=== PATIENT | male | born 1935 | race Caucasian/White ===

== ENCOUNTER 2022-11-03 13:53 | Observation (INO) | payer MEDICARE, BC, SELFPAY ==
[2022-11-03 13:57] VITALS: BP 137/79; PULSE 88; RESP 16; TEMP 37.6; O2SAT 97
--- NOTE | 2022-11-03 14:30 | DI.CT_ITS ---
Exam(s) CT NECK W EXAM: CT NECK W CLINICAL HISTORY: trismus, facial swelling, throat pain. TECHNIQUE: Imaging Protocol: Axial computed tomography images with coronal and sagittal reformatted images were created and reviewed. CONTRAST MATERIAL: Intravenous: Omnipaque. Contrast volume:100mL COMPARISON: No exams were available for comparison FINDINGS: There is artifact particularly in the pharyngeal stage area secondary to the patient's dental amalgam . Orbits and orbital soft tissues: Within normal limits. Visualized paranasal sinuses: There is a mucous retention cyst or polyp in the left maxillary sinus. There is mucosal thickening in the maxillary sinuses. The remaining visualized paranasal sinuses a nd mastoid air cells are clear. No fluid levels are present. Pharynx: There is asymmetric enlargement of the right tonsillar tissue. No definite fluid collection is seen to suggest an abscess. There is stranding in the soft tissues in the right parapharyngeal s oft tissues. Larynx: Within normal limits. Retropharyngeal space: Within normal limits. Parotids/submandibular: There is heterogeneity and edema seen in the right submandibular gland. Mil d surrounding infiltration of the fat is seen. No ductal stones are identified. Thyroid gland: Within normal limits. Lymphadenopathy: There is scattered lymph nodes seen along the level one to level three all measurin g less than 8 mm in short axis diameter which are physiologic in nature. Trachea: Within normal limits. Lung apices: Within normal limits. Bones: Within normal limits for the patient's age. No findings to suggest a periapical abscess is se en. Carotids/Jugular: Within normal limits. Soft tissues: There is infiltration in the subcutaneous tissues along the right neck consistent wit h cellulitis. No abscess is seen. IMPRESSION: 1. Enlarged right tonsils. Heterogeneous edematous right submandibular gland. Infiltration in the s oft tissues in the right parapharyngeal space and right neck. The findings are suspicious for an inf ectious process such as tonsillitis. No definite abscess is seen at this time. There is however art ifact from the patient's dental amalgam obscuring portions of the pharyngeal spaces. No airway narro wing is seen at this time. 2. Findings were discussed with Abi Tenorio at 5:09 p.m. on 11/03/2022. RADIATION DOSE DELIVERED: 406.11mGy.cm Total DLP 406.11mGy.cm Total DLP DATA REPOSITORY: All CT scans at this facility are submitted to the National Radiology Data Registry (NRDR) Dose Index Registry (DIR) with the [employer] ([employer]). RADIATION OPTIMIZATION: All CT scans at this facility use at least one of these dose optimization te chniques: automated exposure control; mA and/or kV adjustment per patient size (includes targeted exa ms where dose is matched to clinical indication); or iterative reconstruction.
[2022-11-03] MEDS: Dexamethasone 10 MG/ML VIAL IVP ×2 (15:18→22:04)
[2022-11-03 15:21] LABS: Abs Immature Grans 0.03 10^3/uL (0.0-0.06); Absolute Basophil Count 0.02 10^3/uL (0.0-0.2); Absolute Eosinophil Count 0.02 10^3/uL (0.0-0.7); Absolute Lymphocyte Count 1.16 10^3/uL (1.2-3.4); Absolute Neutrophil Count 7.84 10^3/uL (1.2-6.7); Basophils % 0.2; Eosinophils % 0.2; HCT 47.4 % (40.0-50.0); HGB 15.8 g/dL (13.5-17.5); Immature Grans % 0.3; Lymphocytes % 11.5; MCH 30.1 pg (27.0-33.0); MCHC 33.3 % (32.0-36.0); MCV 90 fL (80-95); MPV 8.8 fL (8.0-11.0); Monocytes % 9.9; Neutrophils % 77.9; Platelet Count 284 10^3/uL (130-400); RBC 5.25 10^6/uL (4.36-5.78); RDW 13.9 % (11.8-14.1); RDW-SD 46.3 fL; WBC 10.07 10^3/uL (4.4-10.8)
[2022-11-03 15:33] LABS: ALT 19 U/L (16-63); AST 22 U/L (15-37); Albumin 3.9 g/dL (3.4-5.0); Alkaline Phosphatase 61 U/L (46-116); BUN 10 mg/dL (7-18); Bilirubin, Total 1.7 mg/dL (0.2-1.0); CREATININE 0.7 mg/dL (0.70-1.30); Calcium 9.3 mg/dL (8.5-10.1); Chloride 96 mmol/L (98-107); Estimated GFR 89.73 (mL/min/1.73m2); Glucose 105 mg/dL (74-106); Potassium 4.8 mmol/L (3.5-5.1); Sodium 131 mmol/L (136-145)
--- NOTE | 2022-11-03 15:56 | ED.GENADUL_ITS ---
Discharge Plan Disposition Patient Disposition: Admit to [facility] Discharge Details Admit Date/Time: 11/03/22 18:18 Admit Provider: Ghanshyam Plascencia Attending Provider: Ghanshyam Plascencia Primary Care Provider: Nay,Local ED Provider: Abi Tenorio Discharge Data Discharge Date/Time-TO BE ENTERED AT DEPARTURE: 11/03/22 19:56 Medical Decision Making <CARMITA Duncan - Last Filed: 11/04/22 21:46> This 87-year-old male presents with report of facial swelling followed by a sore throat over the course of the past several days. Evaluated at [facility] previously presents today secondary to sore throat and worsening symptoms. Pen sharifa CT soft tissue neck for further evaluation, on exam, uvula midline, swelling noted to palate, mild, maintaining secretions, normal phonation, swelling to the right side of face, will likely need antibiotics, did receive 10 mg of IV Decadron for trismus, signed out to Janae Tenorio pending CT Sodium 131, very mild hyponatremia, very mild hyperbilirubinemia, likely Leon Bears, no abdominal tenderness, no weakness, no dizziness, no nausea, vomiting vomiting, does not take any medications and is quite healthy at baseline <Abi Tenorio NP - Last Filed: 11/03/22 22:32> Medical Records Medical records reviewed: Yes I reviewed the patient's medical records. Medical records narrative: 1617: Care assumed from provider (CARMITA Duncan) Please see their initial HPI, PE, and documentation. Discussed patient details and case and pending workup and disposition. Patient is hemodynamically stable, and alert and oriented. At the time of signout awaiting CT neck result. And labs. CBC shows left shift up to look neutrophil 7.4, lymphocytes 1.16 monocytes 1, sodium 131 chloride 96 bilirubin is high at 1.7. No leukocytosis noted. On reexamination patient is unable to open his mouth fully, his uvula is swollen, he does have some swelling to his right posterior. 1740: Spoke with Dr. Cameron who was able to personally able to view the images, he recommends Unasyn, Zosyn for broad spectrum or Clindamycin, he recommends admission for IV antibiotics, observation, and steroids he also recommends repeating CT only if worsening. Then DC on Augmentin, tx to [facility] if worsening. Discussed recommendations with patient and family who verbalized understanding. They are in agreement with the plan for admission, he is a full code. 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 He has had tonsillectomy and adenoidectomy as a child. No allergies to medications. No medications on a regular basis. 1806: Hospitalist brandie. Discussed patient case and details with Dr. Willard who has accepted patient for admission. Will place holding orders. Unasyn ordered and Decadron twice daily 10 mg IV. Patient transferred up to floor in hemodynamically stable condition with ED staff. This text was generated using [email or web address] dictation system, please disregard any oddities of phrase or misspellings. Imaging Data Radiologic Study: Imaging: CT Scan Radiologist's impression: COMPARISON:? No exams were available for comparison? FINDINGS: There is artifact particularly in the pharyngeal stage area secondary to the patient's dental amalgam.? Orbits and orbital soft tissues:? Within normal limits. Visualized paranasal sinuses:? There is a mucous retention cyst or polyp in the left maxillary sinus.? There is mucosal thickening in the maxillary sinuses.? The remaining visualized paranasal sinuses and mastoid air cells are clear.? No fluid levels are present.? Pharynx: There is asymmetric enlargement of the right tonsillar tissue.? No definite fluid collection is seen to suggest an abscess.? There is stranding in the soft tissues in the right parapharyngeal soft tissues.? Larynx: Within normal limits. Retropharyngeal space: Within normal limits.? Parotids/submandibular:? There is heterogeneity and edema seen in the right submandibular gland.? Mild surrounding infiltration of the fat is seen.? No ductal stones are identified. Thyroid gland:? Within normal limits. Lymphadenopathy:? There is scattered lymph nodes seen along the level one to level three all measuring less than 8 mm in short axis diameter which are physiologic in nature. Trachea: Within normal limits. Lung apices:? Within normal limits. Bones: Within normal limits for the patient's age.? No findings to suggest a periapical abscess is seen. Carotids/Jugular:? Within normal limits. Soft tissues: ? There is infiltration in the subcutaneous tissues along the right neck consistent with cellulitis.? No abscess is seen. IMPRESSION: 1. Enlarged right tonsils.? Heterogeneous edematous right submandibular gland.? Infiltration in the soft tissues in the right parapharyngeal space and right neck.? The findings are suspicious for an infectious process such as tonsillitis.? No definite abscess is seen at this time.? There is however artifact from the patient's dental amalgam obscuring portions of the pharyngeal spaces.? No airway narrowing is seen at this time.? 2. Findings were discussed with Abi Tenorio at 5:09 p.m. on 11/03/2022. HPI <CARMITA Duncan - Last Filed: 11/04/22 21:46> General Date/Time Provider Initiated Documentation: 11/03/22 14:02 . HPI Narrative: This 87-year-old male presents with report of right facial swelling followed by sore throat over the course of the past several days. Denies fever or chills. Denies any chest pain or shortness of breath. Denies globus sensation in throat. Denies stiff neck. States he was evaluated [facility] not started on antibiotics. He thought he noted some swelling and tenderness over his parotid gland 2 days ago. Denies any trauma Related Data Home Medications Medication Instructions Recorded Confirmed amoxicillin 500 mg-potassium 1 tab PO BID #10 tabs 11/04/22 clavulanate 125 mg tablet (Augmentin) prednisone 10 mg tablet 20 mg PO DAILY #10 tabs 11/04/22 Previous Rx's Medication Instructions Recorded amoxicillin 500 mg-potassium 1 tab PO BID #10 tabs 11/04/22 clavulanate 125 mg tablet (Augmentin) prednisone 10 mg tablet 20 mg PO DAILY #10 tabs 11/04/22 Allergies Allergy/AdvReac Type Severity Reaction Status Date / Time No Known Allergies Allergy Unverified 11/03/22 14:03 General Stated Complaint: DentalOral LEV: 4 PFSH <CARMITA Duncan - Last Filed: 11/04/22 21:46> All Active Problems (Updated 11/03/22 @ 22:50 by Ghanshyam Plascencia) Peritonsillar cellulitis (Acute) Surgical History Hx of appendectomy Hx of tonsillectomy S/P tonsillectomy and adenoidectomy Social History Smoking/Tobacco Use Status: Never Smoking risk assessment performed?: Yes Alcohol Intake: current Alcohol Intake frequency: a few times a week Alcohol type: wine Drug use: Never Substance use type: does not use Housing: house Course <CARMITA Duncan - Last Filed: 11/04/22 21:46> Vital Signs Vital signs: Vital Signs Temperature 37.6 C H 11/03/22 13:57 Pulse 88 11/03/22 13:57 Respiratory Rate 16 11/03/22 13:57 Blood Pressure 137/79 11/03/22 13:57 Pulse Oximetry 97 11/03/22 13:57 Temperature 37.6 C H 11/03/22 13:57 Temperature Source Oral 11/03/22 13:57 Pulse 88 11/03/22 13:57 Respiratory Rate 16 11/03/22 13:57 Respiratory Effort Normal 11/03/22 14:02 Blood Pressure 137/79 11/03/22 13:57 Blood Pressure Position Sitting 11/03/22 13:57 Pulse Oximetry 97 11/03/22 13:57 Oxygen Delivery Method Room Air 11/03/22 13:57 Oxygen Flow Rate 0 11/03/22 13:57 Pain Level 5 11/03/22 15:41 Lab/Test Results Lab/Test Results: Laboratory Tests Range/Units 11/03/22 11/03/22 15:13 15:13 WBC (4.4-10.8) 10^3/uL 10.07 RBC (4.36-5.78) 10^6/uL 5.25 Hgb (13.5-17.5) g/dL 15.8 Hct (40.0-50.0) % 47.4 MCV (80-95) fL 90 MCH (27.0-33.0) pg 30.1 MCHC (32.0-36.0) % 33.3 RDW (11.8-14.1) % 13.9 Plt Count (130-400) 10^3/uL 284 MPV (8.0-11.0) fL 8.8 Immature Gran % 0.3 Neutrophils % 77.9 Lymphocytes % 11.5 Monocytes % 9.9 Eosinophils % 0.2 Basophils % 0.2 Nucleated RBC % (0.0-0.3) % 0.0 Absolute Neutrophils (1.2-6.7) 10^3/uL 7.84 H Absolute Lymphocytes (1.2-3.4) 10^3/uL 1.16 L Absolute Monocytes (0.1-0.8) 10^3/uL 1.00 H Absolute Eosinophils (0.0-0.7) 10^3/uL 0.02 Absolute Basophils (0.0-0.2) 10^3/uL 0.02 Sodium (136-145) mmol/L 131 L Potassium (3.5-5.1) mmol/L 4.8 Chloride (98-107) mmol/L 96 L Carbon Dioxide (21.0-32.0) mmol/L 26.0 Anion Gap (3-11) mmol/L 9.0 BUN (7-18) mg/dL 10 Creatinine (0.70-1.30) mg/dL 0.7 Est GFR (CKD-EPI 2020) (mL/min/1.73m2) 89.73 Glucose (74-106) mg/dL 105 Calcium (8.5-10.1) mg/dL 9.3 Total Bilirubin (0.2-1.0) mg/dL 1.7 H AST (15-37) U/L 22 ALT (16-63) U/L 19 Alkaline Phosphatase (46-116) U/L 61 Total Protein (6.4-8.2) g/dL 8.0 Albumin (3.4-5.0) g/dL 3.9 Sign Out <CARMITA Duncan - Last Filed: 11/04/22 21:46> Sign Out Data: Sign Out Comment: pending ct/.dispo Last updated by Sophie Diana PA at 11/03/22 16:00 PAWSS <CARMITA Duncan - Last Filed: 11/04/22 21:46> Have you Been Recently Intoxicated or Drunk Within the Last 30 days?: No Have you Ever Experienced Previous Episodes of Alcohol Withdrawal?: No Have you ever Experienced Withdrawal Seizures?: No Have you ever Experienced Delirium Tremens(DT)s?: No Have you ever undergone Alcohol Rehabilitation Treatment (i.e, inpt ot outpatient treatment programs)?: No Have you ever Experienced Blackouts?: No Have you ever Combined Alcohol with other Downers within the last 90 days?: No Have you ever Combined Alcohol with any other Substance of Abuse during the last 90 days?: No Result: 0 <Abi Tenorio NP - Last Filed: 11/03/22 22:32> Result: 0
[2022-11-03] MEDS: Normal Saline 500 ML IV (16:34)
[2022-11-03] MEDS: Omnipaque 350 MG/ML 100 ML BTL IJ (16:47)
[2022-11-03] MEDS: Normal Saline - Diluent 50 ML VIAL IJ (16:48)
[2022-11-03] MEDS: Normal Saline Flush 10 ML SYR IVP (16:49)
[2022-11-03] MEDS: CLINDAMYCIN 600 MG/50 ML BAG 100 MG IVPB ×2 (18:07→22:50)
[2022-11-03] MEDS: AMPICILLIN/SULBACTAM 3 GM in Normal Saline 100 ML IVPB (18:35)
[2022-11-03 20:01] VITALS: BP 138/80; PULSE 78; RESP 18; TEMP 36.6; O2SAT 96
[2022-11-03 20:05] VITALS: BP 128/77; PULSE 74; RESP 16; TEMP 36.8; O2SAT 99
--- NOTE | 2022-11-03 22:48 | W.PM.HP.N ---
Date of service: 11/03/22 Time of Service: 22:48 Assessment and Plan Assessment and plan (1) Peritonsillar cellulitis: Start date: 11/03/22 Status: Acute Assessment and plan: This is an 87-year-old gentleman with onset of right neck pain and swelling externally and having a fullness in his right neck over 48 hours. He has no fever or elevated WBC but CT scan does show significant cellulitis of the peritonsillar area though he is status post tonsillectomy bilaterally. He was started on Unasyn IV and Decadron with improvement after 1 dose of each. He will continue on IV antibiotic therapy and Decadron IV twice daily with converted to oral therapy if improving over the next 24 to 48 hours. He is on observation. If he worsens repeat CT scan and ENT consultation will be sought within 24 hours. He appears to be responding well. It is anticipated that he will be discharged home within 48 hours. He is a full code. History of Present Illness History of Present Illness Chief Complaint: Sore throat with trismus Narrative: This is an 87-year-old male patient who began to have a sore throat with difficulty opening his mouth 2 days prior to presentation. His trismus and sore throat worsened with swelling of his parotid gland area but no fever was noted. The day prior to admission the patient did go to the outpatient clinic and is right tonsillar area was erythematous with some swelling but all screening test were negative including rapid strep test along with viral screening including flu, COVID and RSV. He was found to be conservative and all the symptomatic treatment option rather than antibiotics but worsened and reported to the ED. CT scan did show some swelling and stranding in the tonsillar area though the patient did have a bilateral tonsillectomy with adenoidectomy. The diagnosis was peritonsillar cellulitis without abscess the patient was admitted on the Unasyn with Decadron and felt better by the time I saw him after 1 dose of each. He still has significant trismus and cannot open his mouth. Generally patient is healthy on no medical therapy and avoids medical care if possible. He is a full code. Review of Systems Narrative: 13 point review of systems otherwise unrevealing or stable. [facility] All Active Problems (Updated 11/03/22 @ 22:50 by Ghanshyam Plascencia) Peritonsillar cellulitis (Acute) Surgical History Hx of appendectomy Hx of tonsillectomy S/P tonsillectomy and adenoidectomy Social History Smoking/Tobacco Use Status: Never Smoking risk assessment performed?: Yes Alcohol Intake: current Alcohol Intake frequency: a few times a week Alcohol type: wine Drug use: Never Substance use type: does not use Housing: house Meds Allergies and Home Medications Allergies Allergy/AdvReac Type Severity Reaction Status Date / Time No Known Allergies Allergy Unverified 11/03/22 14:03 Home Medications Medication Instructions Recorded Confirmed Type Unknown [No Known Home Meds] 11/03/22 11/03/22 History Exam Narrative Exam Narrative: General: Patient appears appropriate for age, thinly built, alert and oriented x3 with some difficulty hearing. He is in no acute distress. HEENT: Normocephalic, eyes with pupils equal and react to light symmetrically, extraocular move intact and sclera anicteric. Oropharynx with erythema over the right pharynx but difficulty visualizing his pharynx with patient unable to open his mouth widely. There is some significant trismus persisting and some slight tenderness over his right jaw but no palpable swelling or fluctuance. Neck: Supple without JVD. No palpable lymphadenopathy over the neck. Back: Normal posture without CVA tenderness. Lungs: Clear to auscultation percussion with no focalizing rales or rhonchi. Normal vesicular breath sounds. Normal aeration. Heart: Regular rate and rhythm with no murmurs or gallops appreciated. Abdomen: Scaphoid contour, soft nontender to palpation with no palpable hepatosplenomegaly. Bowel sounds positive all quadrants. Genitalia/rectal: Exam deferred. Extremities: Without clubbing, cyanosis or pitting edema. Peripheral pulses intact. Skin: Actinic changes over sun exposed areas, rough texture, otherwise normal color, warm and dry. Neuro: Cranial nerves II through XII grossly intact, no focalizing motor deficits. No tremor. Psych: Normal affect and mood. No abnormal thought processes. Remote and recent memory grossly intact. Results Imaging Imaging Studies: EXAM:? CT NECK W CLINICAL HISTORY:? trismus, facial swelling, throat pain. ? TECHNIQUE:? Imaging Protocol: Axial computed tomography images with coronal and sagittal reformatted images were created and reviewed. CONTRAST MATERIAL:? Intravenous: Omnipaque.? Contrast volume:100mL COMPARISON:? No exams were available for comparison? FINDINGS: There is artifact particularly in the pharyngeal stage area secondary to the patient's dental amalgam.? Orbits and orbital soft tissues:? Within normal limits. Visualized paranasal sinuses:? There is a mucous retention cyst or polyp in the left maxillary sinus.? There is mucosal thickening in the maxillary sinuses.? The remaining visualized paranasal sinuses and mastoid air cells are clear.? No fluid levels are present.? Pharynx: There is asymmetric enlargement of the right tonsillar tissue.? No definite fluid collection is seen to suggest an abscess.? There is stranding in the soft tissues in the right parapharyngeal soft tissues.? Larynx: Within normal limits. Retropharyngeal space: Within normal limits.? Parotids/submandibular:? There is heterogeneity and edema seen in the right submandibular gland.? Mild surrounding infiltration of the fat is seen.? No ductal stones are identified. Thyroid gland:? Within normal limits. Lymphadenopathy:? There is scattered lymph nodes seen along the level one to level three all measuring less than 8 mm in short axis diameter which are physiologic in nature. Trachea: Within normal limits. Lung apices:? Within normal limits. Bones: Within normal limits for the patient's age.? No findings to suggest a periapical abscess is seen. Carotids/Jugular:? Within normal limits. Soft tissues: ? There is infiltration in the subcutaneous tissues along the right neck consistent with cellulitis.? No abscess is seen. IMPRESSION: 1. Enlarged right tonsils.? Heterogeneous edematous right submandibular gland.? Infiltration in the soft tissues in the right parapharyngeal space and right neck.? The findings are suspicious for an infectious process such as tonsillitis.? No definite abscess is seen at this time.? There is however artifact from the patient's dental amalgam obscuring portions of the pharyngeal spaces.? No airway narrowing is seen at this time.? Labs 11/03/22 15:13 11/03/22 15:13 Labs: Laboratory Results - last 24 hr 11/03/22 11/03/22 15:13 15:13 WBC 10.07 RBC 5.25 Hgb 15.8 Hct 47.4 MCV 90 MCH 30.1 MCHC 33.3 RDW 13.9 Plt Count 284 MPV 8.8 Immature Gran % 0.3 Neutrophils % 77.9 Lymphocytes % 11.5 Monocytes % 9.9 Eosinophils % 0.2 Basophils % 0.2 Nucleated RBC % 0.0 Absolute Neutrophils 7.84 H Absolute Lymphocytes 1.16 L Absolute Monocytes 1.00 H Absolute Eosinophils 0.02 Absolute Basophils 0.02 Sodium 131 L Potassium 4.8 Chloride 96 L Carbon Dioxide 26.0 Anion Gap 9.0 BUN 10 Creatinine 0.7 Est GFR (CKD-EPI 2020) 89.73 Glucose 105 Calcium 9.3 Total Bilirubin 1.7 H AST 22 ALT 19 Alkaline Phosphatase 61 Total Protein 8.0 Albumin 3.9 Last Vital Signs Temp 36.8 C 11/03/22 20:05 Pulse 74 11/03/22 20:05 Resp 16 11/03/22 20:05 BP 128/77 11/03/22 20:05 Pulse Ox 99 11/03/22 20:05 PAWSS Have you Been Recently Intoxicated or Drunk Within the Last 30 days?: No Have you Ever Experienced Previous Episodes of Alcohol Withdrawal?: No Have you ever Experienced Withdrawal Seizures?: No Have you ever Experienced Delirium Tremens(DT)s?: No Have you ever undergone Alcohol Rehabilitation Treatment (i.e, inpt ot outpatient treatment programs)?: No Have you ever Experienced Blackouts?: No Have you ever Combined Alcohol with other Downers within the last 90 days?: No Have you ever Combined Alcohol with any other Substance of Abuse during the last 90 days?: No Result: 0 Time Spent Time spent with Patient: 55-74 minutes Time was spent: preparing to see the patient(eg.review tests), obtaining and/or reviewing separately otained hiistory, ordering medications,tests, procedures, referring, communicating with other health pet caregiver, indepentently interpreting results and care coordination
[2022-11-03 23:38] VITALS: BP 130/81; PULSE 69; RESP 18; TEMP 36.6; O2SAT 97
[2022-11-04] MEDS: Heparin 5,000 UNITS/ML VIAL 5000 UNITS SC (01:48)
[2022-11-04] MEDS: AMPICILLIN/SULBACTAM 3 GM in Normal Saline 100 ML IVPB ×2 (01:49→10:49)
[2022-11-04 07:18] LABS: HCT 44.3 % (40.0-50.0); HGB 15.2 g/dL (13.5-17.5); MCH 30.5 pg (27.0-33.0); MCHC 34.3 % (32.0-36.0); MCV 89 fL (80-95); MPV 9.1 fL (8.0-11.0); Platelet Count 292 10^3/uL (130-400); RBC 4.98 10^6/uL (4.36-5.78); RDW 13.8 % (11.8-14.1); RDW-SD 45.2 fL; WBC 5.68 10^3/uL (4.4-10.8)
[2022-11-04 07:38] LABS: ALT 16 U/L (16-63); AST 9 U/L (15-37); Albumin 3.4 g/dL (3.4-5.0); Alkaline Phosphatase 54 U/L (46-116); Anion Gap 8.2 mmol/L (3-11); BUN 13 mg/dL (7-18); Bilirubin, Total 1.1 mg/dL (0.2-1.0); CO2 26.8 mmol/L (21.0-32.0); CREATININE 0.8 mg/dL (0.70-1.30); Calcium 9.2 mg/dL (8.5-10.1); Chloride 98 mmol/L (98-107); Estimated GFR 86.19 (mL/min/1.73m2); Glucose 136 mg/dL (74-106); Potassium 4.7 mmol/L (3.5-5.1); Sodium 133 mmol/L (136-145); Total Protein 7.2 g/dL (6.4-8.2)
[2022-11-04] MEDS: Normal Saline Flush 10 ML SYR IVP (08:21)
[2022-11-04] MEDS: Dexamethasone 10 MG/ML VIAL IVP (08:21)
[2022-11-04 08:39] VITALS: BP 148/75; PULSE 78; RESP 16; TEMP 36.5; O2SAT 98
[2022-11-04] MEDS: CLINDAMYCIN 600 MG/50 ML BAG 100 MG IVPB (08:45)
[2022-11-04 10:55] VITALS: BP 136/76; PULSE 63; RESP 16; TEMP 36.5; O2SAT 98
--- NOTE | 2022-11-04 11:53 | DSE_ITS ---
Date of service: 11/04/22 Time of Service: 11:53 DS: Diagnosis Discharge Diagnosis (1) Peritonsillar cellulitis: Status: Acute Asessment and Plan: Patient presented with severe pharyngitis to the point it was causing difficulty breathing. He received dexamethasone and Unasyn in the ED and began to feel somewhat better within an hour. A CT scan of the head neck did not show a retroperitoneal abscess. Within 24 hours he felt quite a bit better though still did have some residual trismus. He is discharged on 5 more days of Augmentin and prednisone 20 mg daily x5 more days. Discharge Plan Disposition Patient Disposition: Home Condition: Improving Discharge Details Reason For Visit: Right Retropharyngeal Cellulitis Admit Date/Time: 11/03/22 18:18 Admit Provider: Ghanshyam Plascencia Attending Provider: Ghanshyam Plascencia Primary Care Provider: Nay,[facility] Course Hospital Course: This is an 87-year-old gentleman with onset of right neck pain and swelling externally and having a fullness in his right neck over 48 hours.? He has no f ever or elevated WBC but CT scan does show significant cellulitis of the peritonsillar area though he is status post tonsillectomy bilaterally.? He was started on Unasyn IV and Decadron with improvement after 1 dose of each.? He continued on IV antibiotic therapy and Decadron IV twice daily. Converted to oral therapy at discharge.? He is on observation.? If he worsens repeat CT scan and ENT consultation will be sought within 24 hours.? He appears to be responding well.? The day of discharge he did still complain of some trismus. He points to the right side of the angle of the jaw when he forces his mouth open. He describes it as much better. He is back to eating solid food. He has had no fevers. He has no local primary care provider. He wishes to establish this on his own. His plan is to follow-up with urgent care or the emergency room if needed. He does not go back to [place] for another several weeks. Home Meds and New Rx's Prescriptions: New amoxicillin-pot clavulanate [Augmentin] 500-125 mg tablet 1 tab PO BID Qty: 10 0RF prednisone 10 mg tablet 20 mg PO DAILY Qty: 10 0RF Discharge Instructions Instructions: Pharyngitis (GEN) Activity:: Activity as Tolerated Equipment/Supplies:: No Equipment Needed Diet:: As Tolerated Discharge Orders Discharge Orders: Discharge Order (Routine); Ordered 11/04/22 Ordered By: Donald Julio DS: Summary Time Spent with Patient providing and/or coordinating discharge services: Greater than 30 minutes Status at Discharge Functional status at discharge: independent ambulation Overall status at discharge: patient is back to baseline Mental Status: mental status grossly normal Speech and Movement: speech and movement normal Mood: congruent mood Affect: normal affect Exam Narrative Exam Narrative: Exam on day of discharge he was sitting up in bed in good spirits and in no apparent distress. He demonstrates opening his mouth only about 2 to 3 cm between his teeth. The oropharynx appeared clear there was no erythema and no apparent swelling. The neck exam did not show any adenopathy or tenderness. He depicts pain at the right angle of the jaw when he forces his mouth open but there is not any swelling in that region or outward sign of deformity to suggest an ongoing infection. The chest was otherwise nontender and had no adenopathy. He had no abdominal tenderness. Psych Mental Status: mental status grossly normal Speech and Movement: speech and movement normal Mood: congruent mood Affect: normal affect DS: Data Vitals/I&O Vitals and I&O: Vital Signs Temperature 36.5 C 11/04/22 10:55 Temperature Source Tympanic 11/04/22 10:55 Pulse 63 11/04/22 10:55 Pulse Rhythm Regular 11/04/22 05:14 Respiratory Rate 16 11/04/22 10:55 Respiratory Effort Normal, Non-Labored 11/04/22 05:14 Respiratory Depth Normal 11/04/22 05:14 Respiratory Pattern Normal 11/03/22 23:29 Blood Pressure 136/76 11/04/22 10:55 Blood Pressure Position Sitting 11/03/22 13:57 Pulse Oximetry 98 11/04/22 10:55 Oxygen Delivery Method Room Air 11/04/22 10:55 Oxygen Flow Rate 0 11/04/22 10:55 Pain Level 0 11/04/22 08:39 Intake & Output 11/03/22 11/03/22 11/04/22 11:59 23:59 11:59 Intake Total 710 / 710 150 / 150 Output Total 400 / 400 1450 / 1450 Balance 310 / 310 -1300 / -1300 Weight 72.91 kg Intake: IV 710 / 710 150 / 150 Output: Urine 400 / 400 1450 / 1450 Other: Urine Color Yellow Yellow Urine Appearance Clear Clear Urine Odor None None Voiding Methods Toilet Toilet Data Completed and Pending Completed studies during hospitalization [Text1]: Neck CT: IMPRESSION: 1. Enlarged right tonsils.? Heterogeneous edematous right submandibular gland.? Infiltration in the soft tissues in the right parapharyngeal space and right neck.? The findings are suspicious for an infectious process such as tonsillitis.? No definite abscess is seen at this time.? There is however artifact from the patient's dental amalgam obscuring portions of the pharyngeal spaces.? No airway narrowing is seen at this time.? 2. Findings were discussed with Abi Tenorio at 5:09 p.m. on 11/03/2022. Labs on day of discharge: Labs from last 24 hours 11/04/22 11/04/22 11/03/22 06:30 06:30 15:13 WBC 5.68 10.07 RBC 4.98 5.25 Hgb 15.2 15.8 Hct 44.3 47.4 MCV 89 90 MCH 30.5 30.1 MCHC 34.3 33.3 RDW 13.8 13.9 Plt Count 292 284 MPV 9.1 8.8 Immature Gran % 0.3 Neutrophils % 77.9 Lymphocytes % 11.5 Monocytes % 9.9 Eosinophils % 0.2 Basophils % 0.2 Nucleated RBC % 0.0 Absolute Neutrophils 7.84 H Absolute Lymphocytes 1.16 L Absolute Monocytes 1.00 H Absolute Eosinophils 0.02 Absolute Basophils 0.02 Sodium 133 L Potassium 4.7 Chloride 98 Carbon Dioxide 26.8 Anion Gap 8.2 BUN 13 Creatinine 0.8 Est GFR (CKD-EPI 2020) 86.19 Glucose 136 H Calcium 9.2 Total Bilirubin 1.1 H AST 9 L ALT 16 Alkaline Phosphatase 54 Total Protein 7.2 Albumin 3.4 11/03/22 15:13 WBC RBC Hgb Hct MCV MCH MCHC RDW Plt Count MPV Immature Gran % Neutrophils % Lymphocytes % Monocytes % Eosinophils % Basophils % Nucleated RBC % Absolute Neutrophils Absolute Lymphocytes Absolute Monocytes Absolute Eosinophils Absolute Basophils Sodium 131 L Potassium 4.8 Chloride 96 L Carbon Dioxide 26.0 Anion Gap 9.0 BUN 10 Creatinine 0.7 Est GFR (CKD-EPI 2020) 89.73 Glucose 105 Calcium 9.3 Total Bilirubin 1.7 H AST 22 ALT 19 Alkaline Phosphatase 61 Total Protein 8.0 Albumin 3.9 PFSH All Active Problems (Updated 11/03/22 @ 22:50 by Ghanshyam Plascencia) Peritonsillar cellulitis (Acute) Surgical History Hx of appendectomy Hx of tonsillectomy S/P tonsillectomy and adenoidectomy Social History Smoking/Tobacco Use Status: Never Smoking risk assessment performed?: Yes Alcohol Intake: current Alcohol Intake frequency: a few times a week Alcohol type: wine Drug use: Never Substance use type: does not use Housing: house Time Spent with Patient Time Spent with Patient: 45-69 minutes Time was spent: preparing to see the patient(eg.review tests), obtaining and/or reviewing separately otained hiistory, ordering medications,tests, procedures, r eferring, communicating with other health post acute care nurse practitioner, indepentently interpreting results and counseling the patient
--- NOTE | 2022-11-04 13:03 | PDOC.CMDIS ---
Date of service: 11/04/22 Time of Service: 13:03 LACE Index Scoring Tool Questions: Length of Stay (in days): 1 Was the patient admitted via the E.D.?: Yes E.D. Visits: 1 Answers: Total Score: 5 Risk of Readmission: Low Risk Care Management Discharge Plan Reason for Hospitalization: Peritonsillar cellulitis Discharge Plan: Ghanshyam is discharged home via private vehicle with family. He will follow up with community providers as discussed and follow his discharge plan of care as instructed. No new services are ordered. Patient/Family Education Needs: Review discharge instructions, limitations, medications and plan to follow up with community providers. Discuss ask me three.
== END 2022-11-04 13:40 | disposition home or self-care (01) ==
LOC: ER 18:46 → MS 11-04 01:24
PROVIDERS: Physician Assistant; Admitting Provider Family Medicine; Emergency Provider Registered Nurse Emergency; Visit Provider Family Medicine
DX: J36 Peritonsillar abscess (principal); R25.2 Cramp and spasm; E87.1 Hypo-osmolality and hyponatremia; E80.6 Other disorders of bilirubin metabolism
CPT/HCPCS: 36415; 70491; 80053; 85027; 96365; 96366; 96375; 99285; 85025; 99222; 99239; J0295; J1100; J1644; J3490